=== PATIENT | female | born 1970 | race Caucasian/White ===

== ENCOUNTER 2016-10-24 08:12 | Emergency (ER) ==
[2016-10-24 08:19] VITALS: BP 137/92; BMI 52.9
--- NOTE | 2016-10-24 09:27 | CT ---
EXAM: CT of the chest without contrast History: Cough. Comparison: CT abdomen pelvis 10/24/2016, chest CT 07/01/2016 Technique: Multiplanar CT images through the thorax were obtained without the administration of IV contrast Findings: Heart size is normal. No pericardial effusion. Great vessels are grossly unremarkable on this noncontrast study. No pathologically enlarged axillary lymph nodes. No pathologically enlarg ed mediastinal or hilar lymph nodes. No consolidation. No pleural fluid and no pneumothorax. Calcified granulomas are again seen within the thorax. No suspicious lung masses or lung nodules. For details in the upper abdomen, please see dedicated CT abdomen pelvis done on the same day. No a cute osseous abnormalities. Impression: No acute intrathoracic process.
[2016-10-24 09:28] LABS: FLU INTERNAL QC INTERNAL QC VALID; RAPID FLU A NEGATIVE (NEGATIVE); RAPID FLU B NEGATIVE (NEGATIVE)
--- NOTE | 2016-10-24 09:29 | CT ---
EXAM: CT abdomen pelvis without contrast HISTORY: Abdominal pain with history of nausea, vomiting and diarrhea for 2 days. Patient with nancy or cholecystectomy and hysterectomy. COMPARISON: CT abdomen pelvis 01/02/2014 TECHNIQUE: Serial axial images of the abdomen pelvis were performed from the lung bases through the inferior pelvis without contrast. These were viewed in multiple planes. FINDINGS: The lung bases are unremarkable. Evaluation is limited due to lack of contrast. The liver is unremarkable. The gallbladder has been resected. There are stable metallic clips adjacent to the right hepatic lobe posteriorly. The adre nal glands are unremarkable. The kidneys demonstrate no obstructive uropathy or stone. The left ki dney demonstrates a low attenuation 0.3 cm lesion posteriorly, with Hounsfield units consistent with a cyst. The spleen is unremarkable. The pancreas is unremarkable. The stomach is unremarkable. The small bowel in the abdomen pelvis is unremarkable. The colon is unremarkable. The appendix is unremarkable. The uterus is been removed. Urinary bladder is partially distended. There is no radha e air or free fluid. There are bilateral nonpathologically enlarged pelvic lymph nodes. The osseou s structures demonstrate no compression fracture or subluxation. There is no lytic or blastic lesio n. IMPRESSION: 1. No acute intra-abdominal or pelvic process to account for patient's symptoms. 2. Stable left renal cyst. 3. Prior cholecystectomy and hysterectomy.
[2016-10-24 09:39] LABS: BASOPHILS % (AUTO) 0.3 % (0.0-3.0); EOSINOPHILS % (AUTO) 0.2 % (0.0-7.0); HEMOGLOBIN 13.7 g/dl (12.0-16.0); IMMATURE GRANULOCYTE % (AUTO) 0.3 % (0.0-5.0); LYMPHOCYTES # (AUTO) 0.9 K/uL (0.60-3.4); LYMPHOCYTES % (AUTO) 10.2 (10.0-50.0); MEAN CORPUSCULAR HEMOGLOBIN 28.5 pg (27.0-31.0); MEAN CORPUSCULAR HGB CONC 31.9 (31.8-35.4); MEAN CORPUSCULAR VOLUME 89.4 fl (81.0-99.0); MONOCYTES # (AUTO) 0.8 K/uL (0.4-2.0); MONOCYTES % (AUTO) 8.9 (0-10); NEUTROPHILS # (AUTO) 7.1 K/ul (2.0-6.9); NEUTROPHILS % (AUTO) 80.1; PLATELET COUNT 218 10^3/uL (140-440); RED BLOOD COUNT 4.81 10^6/ul (4.20-5.40); WHITE BLOOD COUNT 8.91 K/ul (4.6-10.2)
[2016-10-24] MEDS: SODIUM CHLORIDE 1,000 ML IV STA ×2 (09:55→11:37)
[2016-10-24 09:59] LABS: ALANINE AMINOTRANSFERASE 14 U/L (12-78); ALBUMIN 3.7 g/dL (3.4-5.0); ALBUMIN/GLOBULIN RATIO 0.95; ALKALINE PHOSPHATASE 65 U/L (42-98); ANION GAP 9.9; ASPARTATE AMINO TRANSFERASE 16 U/L (15-37); BILIRUBIN,TOTAL 0.63 mg/dL (0.00-1.20); BLOOD UREA NITROGEN 12 mg/dL (7-18); CARBON DIOXIDE 27 mmol/L (21-32); CHLORIDE 105 mmol/L (98-107); CREATINE KINASE 58 U/L; CREATININE 0.93 mg/dL (0.60-1.30); GLUCOSE 115 mg/dL (70-110); POTASSIUM 3.9 mmol/L (3.5-5.10); SODIUM 138 mmol/L (136-145); TOTAL PROTEIN 7.6 g/dL (6.4-8.2)
[2016-10-24 10:09] LABS: BILIRUBIN,URINE Negative (NEGATIVE); KETONES,URINE Negative (NEGATIVE); LEUKOCYTE ESTERASE ,URINE Negative (NEGATIVE); NITRITE,URINE Negative (NEGATIVE); PH,URINE 5.5 (5-9); PROTEIN,URINE Trace (NEGATIVE); URINE, BLOOD 2+ (NEGATIVE)
[2016-10-24 10:14] LABS: ADD URINE MICROSCOPIC YES
[2016-10-24 10:15] LABS: BACTERIA,URINE 2+ (NOT PRESENT)
[2016-10-24 10:51] VITALS: TEMP 98.4
[2016-10-24] MEDS ORDERED: ROCEPHIN 1 GM in SODIUM CHLORIDE 50 ML IV STA (11:17)
--- NOTE | 2016-10-24 11:23 | ED.PDOC ---
General ED Provider: Dr. FADY JESUS Chief Complaint: Fever Stated Complaint: fever Time Seen by Physician: 08:16 (seen with nursing staff) Mode of Arrival: Walk-In Information Source: Patient Exam Limitations: No limitations Primary Care Provider: ALLEGRA DUGAN Nursing and Triage Documentation Reviewed and Agree: Yes Miscellaneous Complaint Exam - Febrile Illness/Adult Complaint/Exam Onset/Duration: fever , x1 day Symptoms Are: Still present Timing: Intermittent Episodes Lasting: Hours Highest Temperature Recorded: no temp taken at home Initial Severity: Mild Current Severity: Moderate Aggravating: Reports: Other (dysuria) Alleviating: Reports: None Associated Signs and Symptoms: Reports: Fluid intake, Cough, Myalgia. Denies: Headache, Short of air, Sore throat, Nausea, Vomiting, Chills, Diaphoresis, Dysuria, Arthralgia, Stiff neck, Rash, Altered mental status Pseudomonas Risk Factors: Reports: None Serious Bacterial Infection Risk Factors: Reports: None Current Antibiotic Use: No Related Surgical History: None Specific Findings: Absent: Meningeal signs, Diaphoresis, Joint swelling, Erythema, Cellulitis, Lymphadenopathy, Petechiae, CVA tenderness Differential Diagnoses: Abdominal Infection, Bacteremia, Pneumonia, Pyelonephritis, Viremia, Other (uti) Quality Indicators For Pneumonia/CAP: Empiric Antibiotic Rx Quality Indicator For Non-Traumatic Chest Pain/Syncope: EKG Performed Review of Systems - Review Of Systems Constitutional: Reports: Fever, Malaise, Weakness Eyes: Reports: No symptoms Ears, Nose, Mouth, Throat: Reports: Throat pain Respiratory: Reports: Cough Cardiac: Reports: No symptoms GI: Reports: No symptoms : Reports: Dysuria Musculoskeletal: Reports: No symptoms Skin: Reports: No symptoms Neurological: Reports: No symptoms Endocrine: Reports: No symptoms Hematologic/Lymphatic: Reports: No symptoms All Other Systems: Reviewed and Negative Past Medical History - Past Medical History Endocrine: Reports: None Cardiovascular: Reports: Hypertension Respiratory: Reports: Asthma Hematological: Reports: None Gastrointestinal: Reports: GERD Genitourinary: Reports: None Neuro/Psych: Reports: Migraine Musculoskeletal: Reports: Other Cancer: Reports: None Last Menstrual Period: hysterectomy Other Pertinent Past Medical History: Arthritis - Surgical History General Surgical History: Reports: Hysterectomy, Cholecystectomy, Orthopedic ( Carple tunnel, Cercvical fusion. ), Other (Mesh, ) - Family History Family History: Reports: Unknown - Social History Smoking Status: Former smoker Hx Substance Use: No Alcohol Screening: None Physical Exam - Physical Exam Appearance: Well-appearing, No pain distress, Well-nourished Eyes: ELENA, EOMI, Conjunctiva clear ENT: Ears normal, Nose normal, Oropharynx normal Respiratory: Airway patent, Breath sounds clear, Breath sounds equal, Respirations nonlabored Cardiovascular: RRR, Pulses normal, No rub, No murmur GI/: Soft, Nontender, No masses, Bowel sounds normal, No Organomegaly Musculoskeletal: Normal strength, ROM intact, No edema, No calf tenderness Skin: Warm, Dry, Normal color Neurological: Sensation intact, Motor intact, Reflexes intact, Cranial nerves intact, Alert, Oriented Psychiatric: Affect appropriate, Mood appropriate Interpretation - Radiology Interpretation Radiology Interpretation By: Radiologist Radiology Results: No acute changes Re-Evaluation - Re-Evaluation Time of Re-Evaluation: 11:00 Status: Improved Vital Signs Stable: Yes Pain Level: 0 Appearance: NAD Lungs: Clear Skin: Warm and Dry Neuro: Alert and Oriented X3 CV: RRR - Re-Evaluation Time of Re-Evaluation: 11:24 Status: Improved Vital Signs Stable: Yes Pain Level: 0 Appearance: NAD Skin: Warm and Dry Neuro: Alert and Oriented X3 CV: RRR Critical Care Note - Critical Care Note Total Time (mins): 0 Course - Course Hematology/Chemistry: 10/24/16 09:14 10/24/16 09:14 Orders, Labs, Meds: Lab Review 10/24/16 10/24/16 10/24/16 08:45 09:08 09:14 WBC 8.91 RBC 4.81 Hgb 13.7 Hct 43.0 MCV 89.4 MCH 28.5 MCHC 31.9 RDW Coeff of Pamela 13.2 Plt Count 218 Immature Gran % (Auto) 0.3 Neut % (Auto) 80.1 Lymph % (Auto) 10.2 [place] % (Auto) 8.9 Eos % (Auto) 0.2 Baso % (Auto) 0.3 Immature Gran # (Auto) 0.0 Neut # 7.1 H Lymph # 0.9 [place] # 0.8 Eos # 0.0 Baso # 0.0 D-Dimer (Manual) 410.65 Sodium 138 Potassium 3.9 Chloride 105 Carbon Dioxide 27 Anion Gap 9.9 BUN 12 Creatinine 0.93 Estimated GFR (MDRD) 65.00 BUN/Creatinine Ratio 12.90 Glucose 115 H Lactic Acid 8.6 Calcium 9.0 Total Bilirubin 0.63 AST 16 ALT 14 Alkaline Phosphatase 65 Total Creatine Kinase 58 Troponin I < 0.0100 Total Protein 7.6 Albumin 3.7 Globulin 3.9 Albumin/Globulin Ratio 0.95 Urine Color Yellow Urine Clarity Turbid Urine pH 5.5 Ur Specific [place] >=1.030 Urine Protein Trace Urine Glucose (UA) Negative Urine Ketones Negative Urine Blood 2+ Urine Nitrite Negative Urine Bilirubin Negative Urine Urobilinogen 0.2 Ur Leukocyte Esterase Negative Urine Microscopic RBC 2-5 Ur Squamous Epith Cells Not present Amorphous Sediment 4+ Urine Bacteria 2+ Influenza A (Rapid) Negative Influenza B (Rapid) Negative Orders Category Date Time Status ED IV/MEDIPORT/POWERPORT .ONCE EMERGENCY 10/24/16 08:48 Active BLOOD CULTURE Stat LAB 10/24/16 09:14 Received CBC W/ AUTO DIFF Stat LAB 10/24/16 09:14 Completed COMPREHENSIVE METABOLIC PANEL Stat LAB 10/24/16 09:14 Completed CREATINE KINASE Stat LAB 10/24/16 09:14 Completed D-DIMER Stat LAB 10/24/16 09:14 Completed LACTIC ACID Stat LAB 10/24/16 09:14 Completed MOLECULAR GROUP A STREP Stat LAB 10/24/16 09:08 Results RAPID FLU A/B Stat LAB 10/24/16 09:08 Completed STREP SCREEN Stat LAB 10/24/16 09:08 Results TROPONIN I Stat LAB 10/24/16 09:14 Completed URINALYSIS C & S IF INDICATED Stat LAB 10/24/16 08:45 Completed URINE CULTURE Routine LAB 10/24/16 08:45 Received 0.9 % Sodium Chloride [Saline Flush] MEDS 10/24/16 08:48 Active 1 syr IVF PRN PRN Ceftriaxone Sodium [Rocephin] 1 gm MEDS 10/24/16 11:17 Ordered 0.9 % Sodium Chloride [Sodium Chloride] 50 ml IV ONCE Ciprofloxacin HCl [Cipro] MEDS 10/24/16 21:00 Ordered 500 mg PO BIDCIPRO Sodium Chloride 0.9% [Sodium Chloride] 1,000 ml MEDS 10/24/16 08:[address] ABDOMEN/PELVIS WO CONTRAST Stat RADS 10/24/16 08:[address] CHEST W/O CONTRAST Stat RADS 10/24/16 08:47 Completed Medications Generic Name Dose Route Start Last Admin Trade Name Freq PRN Reason Stop Dose Admin Ciprofloxacin 500 mg 10/24/16 21:00 Cipro PO BIDCIPRO CORY Ceftriaxone Sodium 1 gm/ 50 mls @ 75 mls/hr 10/24/16 11:17 Sodium Chloride IV 10/24/16 11:56 ONCE STA Sodium Chloride 1 syr 10/24/16 08:48 10/24/16 09:55 Saline Flush IVF 1 syr PRN PRN Administration To flush IV Discontinued Medications Generic Name Dose Route Start Last Admin Trade Name Ronel PRN Reason Stop Dose Admin Sodium Chloride 1,000 mls @ 1,000 mls/hr 10/24/16 08:49 10/24/16 09:55 Sodium Chloride IV 10/24/16 09:48 1,000 mls/hr BOLUS STA Administration Vital Signs: Temp Pulse Resp BP Pulse Ox 10/24/16 10:51 98.4 F 10/24/16 08:13 101.5 F H 104 H 20 137/92 H 93 L Departure - Departure Time of Disposition: 12:30 Disposition: HOME SELF-CARE Discharge Problem: Fever, UTI (urinary tract infection) Instructions: Urinary Tract Infection in Women (ED), Dysuria (ED), Fever in Adults (ED) Condition: Good Pt referred to PMD for follow-up: No Additional Instructions: Please call your Family Physician as soon as possible to schedule a follow-up appointment.START MEDS IN AM Allergies/Adverse Reactions: Allergies Iodinated Contrast Media - Oral and [Iodinated Contrast Media - IV Dye] Adverse Reaction (Verified 10/24/16 08:22) Hives latex Adverse Reaction (Verified 10/24/16 08:22) Rash methylprednisolone [From Medrol] Adverse Reaction (Verified 10/24/16 08:22) Hives naproxen [From Aleve] Adverse Reaction (Verified 10/24/16 08:22) Difficulty Breathing Home Medications: Ambulatory Orders Hydrocodone/Acetaminophen [Hydrocodon-Acetaminophen 5-325] 5 mg PO BID PRN 12/12 Disposition Discussed With: Patient, Family
[2016-10-24] MEDS ORDERED: ROCEPHIN ONE (11:28)
[2016-10-24] MEDS ORDERED: SODIUM CHLORIDE 1,000 ML IV STA (11:35)
[2016-10-24] MEDS ORDERED: CIPRO PO SCH (21:00)
== END 2016-10-24 13:20 | disposition home or self-care (01) ==
LOC: ED 08:12
DX: N39.0 Urinary tract infection, site not specified (principal)
CPT/HCPCS: 36415; 80053; 81001; 82550; 83605; 84484; 85025; 85379; 87040; 87086; 87651; 87804; 87880; 96361; 96365; 99283